=== PATIENT | female | born 1995 | race Caucasian/White ===

== ENCOUNTER 2016-09-27 21:32 | Emergency (ER) | payer MEDICAID ==
[2016-09-27 21:34] VITALS: BMI 26.0
[2016-09-27 21:44] VITALS: BP 119/59; PULSE 80; TEMP 98.7
[2016-09-27 21:58] LABS: AUTOMATED BASOPHIL 0.3 % (0-2); AUTOMATED EOSINOPHIL 1.7 % (0-5); AUTOMATED LYMPH 21.5 % (17-44); AUTOMATED MONOCYTE 11.3 % (3-10); AUTOMATED NEUTROPHIL 65.2 % (45-76); MPV 10.9 fL (7.4-10.4)
[2016-09-27 22:07] LABS: BLOOD UREA NITROGEN 13 MG/DL (7-17); CALCIUM 9.6 MG/DL (8.4-10.2); CALCULATED OSMOLALITY 268 MOs/Kg (270-290); CHLORIDE 111 mEq/L (98-107); GLUCOSE 87 MG/DL (70-99); SODIUM LEVEL 140 mEq/L (137-146); TOTAL PROTEIN 7.1 G/DL (6.3-8.2)
[2016-09-27 22:58] LABS: QUANTITATIVE SERUM HCG 19383.7 mIU/mL (<5)
[2016-09-27 23:40] LABS: LEUKOCYTES/URINE NEG (NEGATIVE); NITRITE/URINE NEG (NEGATIVE); URINE OCCULT BLOOD NEG (NEG/TRACE)
[2016-09-27 23:51] LABS: AMORPHOUS OCC; WBC/URINE 0-2 (0-5)
--- NOTE | 2016-09-28 00:48 | EDPRACDOC ---
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 PT BELIEVES SHE IS ABOUT 6 WEEKS BASED ON LMP. PT STATES THAT BLEEDING HAS SINCE STOPPED. DENIES FEVER, ABD PAIN, N/V/D, DYSURIA, VAGINAL DISCHARGE. . NO APPARENT DISTRESS. 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 Description: Reports: Spontaneous Location: Reports: Internal Vagina Relevant History: Reports: Currently : 3 Para: 2 Total Number of Abortions: 0 Pain Severity: None Vaginal Bleeding Description: Reports: Bright Red # Tampons Used in the Last 12/24 Hours: 0 # Pads Used in the Last 12/24 Hours: 0 Associated Signs & Symptoms: Reports: Vaginal Bleeding ED Past Medical History - History Reviewed Yes Nurses notes reviewed and agree except as marked - Patient Medical History Neurological History: Reports: Seizures (PETIT MAL) Psychological History: Reports: Bipolar Disorder. Denies: Depression Systemic History: Denies: Cancer Surgical History: Reports: Tonsillectomy/Adnoidectomy. Denies: Hysterectomy - Family Medical History Denies: Hypertension, Diabetes, Cancer, Stroke, Cardiac Disorders - Social Medical History Smoking Status: Never smoker EDM Review of Systems - Review of Systems ROS Negative Except as Marked: Yes All systems reviewed and were negative except as marked Constitutional: No Symptoms Reported Respiratory: No Symptoms Reported Cardiovascular: No Symptoms Reported Gastrointestinal: No Symptoms Reported Genitourinary: Bleeding, Neurological: No Symptoms Reported Musculoskeletal: No Symptoms Reported Integumentary: No Symptoms Reported - Physical Exam Constitutional: Alert (Awake), No apparent distress Oriented to: Time, Person, Place Last recorded Vital Signs: Last Vital Signs Temp 98.7 F 09/27/16 21:37 Pulse 80 09/27/16 21:37 Resp 20 09/27/16 21:37 BP 119/59 L 09/27/16 21:37 Pulse Ox 98 09/27/16 21:37 Oxygen Pulse Oxygen Saturation 98 O2 Device Room Air Oxygen Flow Rate Fraction of Inspired Oxygen ( FIO2) - HEENT Head: Normal Eye Exam: Normal Neck: Normal, Denies Pain, Midline - Respiratory/Cardiovascular Respiratory: Normal - CTA Cardiovascular: Normal - GI Auscultation: Normal Palpation: Normal Tenderness: Non tender - Bladder: Normal External: Normal Vagina: Normal Cervix: Normal Uterus: Normal size Adnexa: Bilateral: Normal - Musculoskeletal Back: Normal Extremities: Normal - Integumentary Skin: Normal Lymphatics: Normal - Neurologic Cerebellar: Normal Mood Description: Normal Thought: Coherent Perception: Normal ED Vaginal Exam External: Normal Vaginal Exam: Normal Vaginal Lesions: None Vaginal Discharge: None Cervix: Normal Uterus: Normal size Adnexa: Normal - Results 09/27/16 21:49 09/27/16 21:49 WBC 6.8 xk/uL (3.8-10.8) 09/27/16 21:49 RBC 4.42 xM/uL (4.20-5.40) 09/27/16 21:49 Hgb 11.9 g/dL (12.0-16.0) L 09/27/16 21:49 Hct 36.3 % (36-47) 09/27/16 21:49 MCV 82 fL (81-99) 09/27/16 21:49 MCH 27.0 pg (27-32) 09/27/16 21:49 MCHC 32.9 g/dl (33-36) L 09/27/16 21:49 RDW 13.4 % (11.5-14.5) 09/27/16 21:49 Plt Count 153 xk/uL (130-400) 09/27/16 21:49 MPV 10.9 fL (7.4-10.4) H 09/27/16 21:49 Neut % (Auto) 65.2 % (45-76) 09/27/16 21:49 Lymph % (Auto) 21.5 % (17-44) 09/27/16 21:49 [place] % (Auto) 11.3 % (3-10) H 09/27/16 21:49 Eos % (Auto) 1.7 % (0-5) 09/27/16 21:49 Baso % (Auto) 0.3 % (0-2) 09/27/16 21:49 Absolute Neuts (auto) 4.42 xk/uL (1.7-8.2) 09/27/16 21:49 Absolute Lymphs (auto) 1.43 xk/uL (0.65-4.75) 09/27/16 21:49 Sodium 140 mEq/L (137-146) 09/27/16 21:49 Potassium 3.9 mEq/L (3.5-5.1) 09/27/16 21:49 Chloride 111 mEq/L (98-107) H 09/27/16 21:49 Carbon Dioxide 23 mMOL/L (22-33) 09/27/16 21:49 Anion Gap 10 mEq/L (8-16) 09/27/16 21:49 BUN 13 MG/DL (7-17) 09/27/16 21:49 Creatinine 0.50 MG/DL (0.52-1.04) L 09/27/16 21:49 Estimated GFR (MDRD) > 60 mL/min (>=60) 09/27/16 21:49 Glucose 87 MG/DL (70-99) 09/27/16 21:49 Calculated Osmolality 268 MOs/Kg (270-290) L 09/27/16 21:49 Calcium 9.6 MG/DL (8.4-10.2) 09/27/16 21:49 Total Bilirubin 0.3 MG/DL (0.2-1.3) 09/27/16 21:49 AST 20 IU/L (14-36) 09/27/16 21:49 ALT 20 IU/L (9-52) 09/27/16 21:49 Alkaline Phosphatase 59 IU/L (38-126) 09/27/16 21:49 Total Protein 7.1 G/DL (6.3-8.2) 09/27/16 21:49 Albumin 4.1 G/DL (3.5-5.0) 09/27/16 21:49 Beta HCG, Quant 57989.7 mIU/mL (<5) 09/27/16 21:49 Urine Color Yellow 09/27/16 21:46 Urine Clarity [place] 09/27/16 21:46 Urine pH 8.0 (5.0-8.0) 09/27/16 21:46 Ur Specific [place] 1.010 09/27/16 21:46 Urine Protein Neg (NEG/TRACE) 09/27/16 21:46 Urine Glucose (UA) Neg (NEGATIVE) 09/27/16 21:46 Urine Ketones Neg (NEGATIVE) 09/27/16 21:46 Urine Occult Blood Neg (NEG/TRACE) 09/27/16 21:46 Urine Nitrite Neg (NEGATIVE) 09/27/16 21:46 Urine Bilirubin Neg (NEGATIVE) 09/27/16 21:46 Urine Urobilinogen 0.2 MG/DL (0-1) 09/27/16 21:46 Ur Leukocyte Esterase Neg (NEGATIVE) 09/27/16 21:46 Urine WBC 0-2 (0-5) 09/27/16 21:46 Ur Epithelial Cells 1+ 09/27/16 21:46 Amorphous Sediment Occ 09/27/16 21:46 Urine Bacteria Few (NEG/FEW) 09/27/16 21:46 Urine Mucus Occ (NEG/OCC) 09/27/16 21:46 Microbiology 09/28/16 00:30 LLOYD Preparation - Final Vaginal 09/28/16 00:30 Trichomonas Wet Mount - Final Vaginal Lab Results 09/27/16 09/27/16 09/27/16 21:49 21:49 21:46 WBC 6.8 RBC 4.42 Hgb 11.9 L Hct 36.3 MCV 82 MCH 27.0 MCHC 32.9 L RDW 13.4 Plt Count 153 MPV 10.9 H Neut % (Auto) 65.2 Lymph % (Auto) 21.5 [place] % (Auto) 11.3 H Eos % (Auto) 1.7 Baso % (Auto) 0.3 Absolute Neuts (auto) 4.42 Absolute Lymphs (auto) 1.43 Sodium 140 Potassium 3.9 Chloride 111 H Carbon Dioxide 23 Anion Gap 10 BUN 13 Creatinine 0.50 L Estimated GFR (MDRD) > 60 Glucose 87 Calculated Osmolality 268 L Calcium 9.6 Total Bilirubin 0.3 AST 20 ALT 20 Alkaline Phosphatase 59 Total Protein 7.1 Albumin 4.1 Beta HCG, Quant 90917.7 Urine Color Yellow Urine Clarity C[place] Urine pH 8.0 Ur Specific [place] 1.010 Urine Protein Neg Urine Glucose (UA) Neg Urine Ketones Neg Urine Occult Blood Neg Urine Nitrite Neg Urine Bilirubin Neg Urine Urobilinogen 0.2 Ur Leukocyte Esterase Neg Urine WBC 0-2 Ur Epithelial Cells 1+ Amorphous Sediment Occ Urine Bacteria Few Urine Mucus Occ - Additional Information PT IN NO PAIN. LABS UNREMARKABLE AND PHYSICAL EXAM NORMAL. NO CLINICAL INDICATION FOR FURTHER. Decision Time to Discharge: 00:48 - Departure Disposition: Home Condition: Good Final Diagnosis: Threatened miscarriage Instructions: Threatened Miscarriage (ED) Education/Counseling Given To: Patient Education/Counseling Given Regarding: Diagnosis, Treatment, Follow Up Referrals: Tali Hu PA [Primary Care Provider] - One Week Additional Instructions: CONTINUE FOLLOW UP WITH THERMOFORMING OPERATOR.
[2016-09-30 18:36] LABS: CHLAMY BY NUCLEIC ACID AMP Negative (Negative)
[2016-10-01 06:24] LABS: GC BY NUCLEIC ACID AMP Negative (Negative)
== END 2016-09-28 00:55 | disposition home or self-care (01) ==
LOC: ED 21:32
DX: O20.0 Threatened abortion (principal); Z3A.01 Less than 8 weeks gestation of pregnancy
CPT/HCPCS: 36415; 80053; 81001; 84702; 85025; 87210; 87220; 87491; 87591; 99282

== ENCOUNTER 2016-09-30 16:59 | Emergency (ER) | payer MEDICAID ==
[2016-09-30 17:30] VITALS: TEMP 98.2
[2016-09-30 17:34] VITALS: BMI 25.5
[2016-09-30 17:52] LABS: AUTOMATED BASOPHIL 0.5 % (0-2); AUTOMATED EOSINOPHIL 0.4 % (0-5); AUTOMATED LYMPH 18.5 % (17-44); AUTOMATED MONOCYTE 10.4 % (3-10); AUTOMATED NEUTROPHIL 70.2 % (45-76); MPV 10.5 fL (7.4-10.4)
[2016-09-30 18:02] LABS: BLOOD UREA NITROGEN 11 MG/DL (7-17); CALCIUM 9.5 MG/DL (8.4-10.2); CALCULATED OSMOLALITY 261 MOs/Kg (270-290); CHLORIDE 98 mEq/L (98-107); GLUCOSE 94 MG/DL (70-99); SODIUM LEVEL 136 mEq/L (137-146); TOTAL PROTEIN 7.5 G/DL (6.3-8.2)
[2016-09-30 19:55] LABS: LEUKOCYTES/URINE NEG (NEGATIVE); NITRITE/URINE NEG (NEGATIVE); URINE OCCULT BLOOD NEG (NEG/TRACE)
[2016-09-30 20:01] LABS: WBC/URINE 0-2 (0-5)
[2016-09-30] MEDS ORDERED: NS 2,000 ML IV ONE (20:19)
[2016-09-30] MEDS ORDERED: ONDANSETRON HCL 4 MG/2 ML VIAL IV ONE (20:20)
--- NOTE | 2016-09-30 20:31 | EDPRACDOC ---
- General Information Chief Complaint: Nausea,Vomiting,Diarrhea Stated Complaint: VOMITING X1 DAY - DECREASED URINATION Time Seen by Provider: 09/30/16 20:14 Mode Of Arrival: Car Home Medications: Home Medications Ondansetron HCl [Zofran] 4 mg PO Q6H PRN 09/27/16 Vits W-Ca,Fe,FA(<1Mg) [] 1 tab PO DAILY 09/27/16 Promethazine HCl [Phenergan] 12.5 mg PO Q6-8H PRN #10 tablet 09/30/16 Allergies/Adverse Reactions: Allergies Allergy/AdvReac Type Severity Reaction Status Date / Time morphine Allergy Severe crazy Verified 09/30/16 17:29 - History of Present Illness Onset: yesterday HPI: 4 WKS PREG. VOMITING; NO PAIN. 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 dose @ 1200 Dose/Time) ED Past Medical History - History Reviewed Yes Nurses notes reviewed and agree except as marked - Patient Medical History Neurological History: Reports: Seizures (epilepsy) Psychological History: Reports: Bipolar Disorder. Denies: Depression Systemic History: Denies: Cancer Surgical History: Reports: Tonsillectomy/Adnoidectomy. Denies: Hysterectomy - Family Medical History Denies: Hypertension, Diabetes, Cancer, Stroke, Cardiac Disorders - Social Medical History Smoking Status: Never smoker EDM Review of Systems - Review of Systems ROS Negative Except as Marked: Yes All systems reviewed and were negative except as marked - Physical Exam Constitutional: Alert (Awake), No apparent distress Oriented to: Time, Person, Place Last recorded Vital Signs: Last Vital Signs Temp 98.2 F 09/30/16 17:29 Pulse 104 09/30/16 17:29 Resp 20 09/30/16 17:29 BP 118/69 09/30/16 17:29 Pulse Ox 97 09/30/16 17:29 Oxygen Pulse Oxygen Saturation 97 O2 Device Oxygen Flow Rate Fraction of Inspired Oxygen ( FIO2) - HEENT Head: Normal ( normocephalic) Eye Exam: Normal (PERRL, EOMI, Sclera white) Oropharynx: Normal (Pharynx:Moist without exudate,Gums-no swelling) Tympanic Membrane: Normal ENT EAC: Normal TMJ: Normal Nose: No Symptoms Reported (septum midline) Neck: Normal (FROM, trachea at midline) - Respiratory/Cardiovascular Respiratory: Normal - CTA (BBS clear to auscultation without adventitious sounds ) Cardiovascular: Normal (RRR without murmur, gallop or rub) - GI Auscultation: Normal (NABS) Palpation: Normal (Soft,No rebound or guarding, non distended) Tenderness: Non tender Bonner's Sign: Negative - Musculoskeletal Back: Normal (Non-Tender) Extremities: Normal (Normal tone, Pulses 2+ No cyanosis or edema, FROM) - Integumentary Skin: Normal, Warm, Dry Lymphatics: Normal (no adenopathy) - Neurologic Memory Impaired: Normal Motor Function: Normal (Normal tone, Pulses 2+ No cyanosis or edema, FROM) Cranial Nerve: Normal (CN II-X11 intact sensation, strength 5/5) Cerebellar: Normal Mood Description: Normal Perception: Normal - Results 09/30/16 17:39 09/30/16 17:39 WBC 5.8 xk/uL (3.8-10.8) 09/30/16 17:39 RBC 4.64 xM/uL (4.20-5.40) 09/30/16 17:39 Hgb 12.7 g/dL (12.0-16.0) 09/30/16 17:39 Hct 37.1 % (36-47) 09/30/16 17:39 MCV 80 fL (81-99) L 09/30/16 17:39 MCH 27.4 pg (27-32) 09/30/16 17:39 MCHC 34.3 g/dl (33-36) 09/30/16 17:39 RDW 13.0 % (11.5-14.5) 09/30/16 17:39 Plt Count 152 xk/uL (130-400) 09/30/16 17:39 MPV 10.5 fL (7.4-10.4) H 09/30/16 17:39 Neut % (Auto) 70.2 % (45-76) 01/19/17 17:39 Lymph % (Auto) 18.5 % (17-44) 09/30/16 17:39 [place] % (Auto) 10.4 % (3-10) H 09/30/16 17:39 Eos % (Auto) 0.4 % (0-5) 09/30/16 17:39 Baso % (Auto) 0.5 % (0-2) 09/30/16 17:39 Absolute Neuts (auto) 4.06 xk/uL (1.7-8.2) 09/30/16 17:39 Absolute Lymphs (auto) 1.04 xk/uL (0.65-4.75) 09/30/16 17:39 Sodium 136 mEq/L (137-146) L 09/30/16 17:39 Potassium 3.7 mEq/L (3.5-5.1) 09/30/16 17:39 Chloride 98 mEq/L (98-107) 09/30/16 17:39 Carbon Dioxide 25 mMOL/L (22-33) 09/30/16 17:39 Anion Gap 17 mEq/L (8-16) H 09/30/16 17:39 BUN 11 MG/DL (7-17) 09/30/16 17:39 Creatinine 0.50 MG/DL (0.52-1.04) L 09/30/16 17:39 Estimated GFR (MDRD) > 60 mL/min (>=60) 09/30/16 17:39 Glucose 94 MG/DL (70-99) 09/30/16 17:39 Calculated Osmolality 261 MOs/Kg (270-290) L 09/30/16 17:39 Calcium 9.5 MG/DL (8.4-10.2) 09/30/16 17:39 Total Bilirubin 0.4 MG/DL (0.2-1.3) 09/30/16 17:39 AST 18 IU/L (14-36) 09/30/16 17:39 ALT 33 IU/L (9-52) 09/30/16 17:39 Alkaline Phosphatase 75 IU/L (38-126) 09/30/16 17:39 Total Protein 7.5 G/DL (6.3-8.2) 09/30/16 17:39 Albumin 4.5 G/DL (3.5-5.0) 09/30/16 17:39 Amylase 50 IU/L (30-110) 09/30/16 17:39 Lipase 50 U/L (23-300) 09/30/16 17:39 Urine Color Yellow 09/30/16 19:25 Urine Clarity Sl hzy 09/30/16 19:25 Urine pH 6.0 (5.0-8.0) 09/30/16 19:25 Ur Specific [place] 1.020 09/30/16 19:25 Urine Protein 1+ (NEG/TRACE) H 09/30/16 19:25 Urine Glucose (UA) Neg (NEGATIVE) 09/30/16 19:25 Urine Ketones Neg (NEGATIVE) 09/30/16 19:25 Urine Occult Blood Neg (NEG/TRACE) 09/30/16 19:25 Urine Nitrite Neg (NEGATIVE) 09/30/16 19:25 Urine Bilirubin Neg (NEGATIVE) 09/30/16 19:25 Urine Urobilinogen 0.2 MG/DL (0-1) 09/30/16 19:25 Ur Leukocyte Esterase Neg (NEGATIVE) 09/30/16 19:25 Urine WBC 0-2 (0-5) 09/30/16 19:25 Ur Epithelial Cells 3+ 09/30/16 19:25 Urine Mucus Large (NEG/OCC) 09/30/16 19:25 Urine Test Pos (NEGATIVE) H 09/30/16 19:25 Lab Results 09/30/16 09/30/16 09/30/16 19:25 19:25 17:39 WBC 5.8 RBC 4.64 Hgb 12.7 Hct 37.1 MCV 80 L MCH 27.4 MCHC 34.3 RDW 13.0 Plt Count 152 MPV 10.5 H Neut % (Auto) 70.2 Lymph % (Auto) 18.5 [place] % (Auto) 10.4 H Eos % (Auto) 0.4 Baso % (Auto) 0.5 Absolute Neuts (auto) 4.06 Absolute Lymphs (auto) 1.04 Sodium Potassium Chloride Carbon Dioxide Anion Gap BUN Creatinine Estimated GFR (MDRD) Glucose Calculated Osmolality Calcium Total Bilirubin AST ALT Alkaline Phosphatase Total Protein Albumin Amylase Lipase Urine Color Yellow Urine Clarity Sl hzy Urine pH 6.0 Ur Specific [place] 1.020 Urine Protein 1+ H Urine Glucose (UA) Neg Urine Ketones Neg Urine Occult Blood Neg Urine Nitrite Neg Urine Bilirubin Neg Urine Urobilinogen 0.2 Ur Leukocyte Esterase Neg Urine WBC 0-2 Ur Epithelial Cells 3+ Urine Mucus Large Urine Test Pos H 09/30/16 17:39 WBC RBC Hgb Hct MCV MCH MCHC RDW Plt Count MPV Neut % (Auto) Lymph % (Auto) [place] % (Auto) Eos % (Auto) Baso % (Auto) Absolute Neuts (auto) Absolute Lymphs (auto) Sodium 136 L Potassium 3.7 Chloride 98 Carbon Dioxide 25 Anion Gap 17 H BUN 11 Creatinine 0.50 L Estimated GFR (MDRD) > 60 Glucose 94 Calculated Osmolality 261 L Calcium 9.5 Total Bilirubin 0.4 AST 18 ALT 33 Alkaline Phosphatase 75 Total Protein 7.5 Albumin 4.5 Amylase 50 Lipase 50 Urine Color Urine Clarity Urine pH Ur Specific [place] Urine Protein Urine Glucose (UA) Urine Ketones Urine Occult Blood Urine Nitrite Urine Bilirubin Urine Urobilinogen Ur Leukocyte Esterase Urine WBC Ur Epithelial Cells Urine Mucus Urine Test Decision Time to Discharge: 21:45 - Departure Yes I personally saw and evaluated the patient. Disposition: Home Condition: Good Final Diagnosis: VOMITING-RESOLVED, DEHYDRATION Instructions: Acute Nausea and Vomiting (ED) Education/Counseling Given To: Patient, Family Member Education/Counseling Given Regarding: Diagnosis, Treatment, Prognosis Referrals: Tali Hu PA [Primary Care Provider] - One Week Prescriptions: Promethazine HCl [Phenergan] 12.5 mg PO Q6-8H PRN #10 tablet PRN Reason: Vomiting
[2016-09-30] MEDS ORDERED: PROMETHAZINE 25 MG/ML VIAL IV ONE (20:44)
[2016-09-30 23:14] VITALS: BP 99/62; PULSE 84
== END 2016-09-30 23:13 | disposition home or self-care (01) ==
LOC: ED 16:59
DX: E86.0 Dehydration (principal); R11.10 Vomiting, unspecified
CPT/HCPCS: 36415; 80053; 81001; 81025; 82150; 83690; 85025; 96361; 96374; 99283; J2405; J2550